=== PATIENT | male | born 2000 | race Caucasian/White ===

== ENCOUNTER 2023-10-25 17:42 | Emergency (ER) | payer BC, SELFPAY ==
[2023-10-25 17:42] VITALS: BP 137/90; PULSE 81; RESP 18; TEMP 37.2; O2SAT 97; BMI 20.9
--- NOTE | 2023-10-25 17:43 | ECG_ITS ---
APPROVED REPORT Exam: Resting ECG HR:75 bpm ECG Measurements Heart Rate 75 AXES IA 132 P 63 QRSd 93 QRS 90 QT 356 T 59 QTc 386 Conclusion SINUS RHYTHM NORMAL ECG UNCONFIRMED REPORT Electronically signed by : Osmany Barba, 10/25/2023 23:37:42
--- NOTE | 2023-10-25 18:01 | XR_ITS ---
PROCEDURE INFORMATION: Exam: XR Chest Exam date and time: 10/25/2023 6:02 PM Age: 23 years old Clinical indication: Dyspnea TECHNIQUE: Imaging protocol: Radiologic exam of the chest. Views: 1 view. COMPARISON: No relevant prior studies available. FINDINGS: Lungs: No consolidation. Pleural spaces: No pleural effusion. No pneumothorax. Heart/Mediastinum: No cardiomegaly. Bones/joints: Unremarkable. IMPRESSION: No acute pulmonary findings.
--- NOTE | 2023-10-25 18:03 | ED_ITS ---
Discharge Plan Disposition Patient Disposition: Home, Self-Care Activity Restrictions/Add. Instructions Additional Instructions/Restrictions: No evidence of acute cardiopulmonary emergency please call the primary care doctor as needed. Clinical Impressions Clinical Impression: Atypical chest pain, Anxiety Discharge ED Provider: Jose Barba [facility] General Chief Complaint: Chest Pain Stated Complaint: Chest pain Time Seen by Provider: 10/25/23 17:52 Mode of Arrival: Ambulatory Source of Information: Patient Limitations: No Limitations Description of Symptoms (Recalled from ER Triage Doc. by RN): chest pain on and off for the last 24 hours. currently a 05/17. History of Present Illness HPI narrative: Patient is a 23-year-old male presenting today with chest pain. Patient is currently a single father raising 4 children's also started a new job today at [employer]. He has had significant anxiety and stress leading up to today. States for the last 2 years has had some intermittent discomfort in the left side of his neck. This started a few days ago again and today has had some chest discomfort and left-sided neck pain. No exertional symptoms no diaphoresis no shortness of breath no fevers chills cough or any other symptoms etc. No family history of coronary disease at a young age no history of doing meth or cocaine. He is not an active smoker. Denies any other past medical problems. Related Data Allergies Allergy/AdvReac Type Severity Reaction Status Date / Time No Known Allergies Allergy Verified 10/25/23 18:20 [facility] Disclaimer: The information contained in this section may have been updated after the patient was seen, as this information can be updated by other users. Social History Smoking Status: Never smoker alcohol intake: never current occupational status: other Travel in the last 8 weeks: None ROS Obtained: Yes All systems reviewed & no additional complaints except as documented Physical Exam General General appearance: alert and in no apparent distress Respiratory Respiratory exam: Present normal lung sounds bilaterally; Absent respiratory distress Cardiovascular Cardiovascular exam: Present regular rate and normal rhythm Abdominal Exam Abdominal exam: Present soft; Absent distention or tenderness Neurological Exam Neurological exam: Present alert, oriented X3, CN II-XII intact, normal gait and other (Normal finger-nose [id number] bilaterally); Absent motor sensory deficit HEART Score HEART Score HEART Score assessment performed?: Yes History (anamnesis): Slightly suspicious ECG: Normal Age: <45 years Risk factors: No known risk factors Troponin: </= normal limit HEART Score: 0 Critical Care Critical Care Time Critical Care Time: No Medical Decision Making Gio Inquiry Pt receiving controlled substance: No Vital Signs Vital Signs: 10/25/23 17:42 Temperature 98.9 F Temperature Source Oral Pulse Rate [Right] 81 Respiratory Rate 18 Blood Pressure [Right Arm] 137/90 Blood Pressure Mean [Right Arm] 105 02 Sat by Pulse Oximetry 97 Oxygen Delivery Method Room Air Lab Data Lab results reviewed: Yes I reviewed the patient's lab results. Labs: Lab Results 10/25/23 17:50: WBC 8.0, RBC 5.42, Hgb 16.2, Hct 48.2, MCV 89.0, MCH 29.9, MCHC 33.6, RDW 13.2, Plt Count 287, MPV 7.7, Neut % (Auto) 56.0, Lymph % (Auto) 33.8, Haywood % (Auto) 6.3, Eos % (Auto) 2.1, Baso % (Auto) 1.9, Neut # (Auto) 4.5, Lymph # (Auto) 2.7, [place]wood # (Auto) 0.5, Eos # (Auto) 0.2, Baso # (Auto) 0.2, Sodium 140, Potassium 3.6, Chloride 104, Carbon Dioxide 27, Anion Gap 12.6, BUN 10, Creatinine 1.00, Estimated Creat Clear 106, Estimated GFR 91, Est GFR ( Amer) 110, Glucose 93, Calcium 9.4, Total Bilirubin 1.1, AST 32, ALT 22, Alkaline Phosphatase 66, Troponin I < 0.01, Total Protein 7.7, Albumin 4.8, Globulin 2.9, Albumin/Globulin Ratio 1.7 10/25/23 17:50 10/25/23 17:50 Response Orders (Tests/Meds): ORDERS Category Date Time Status CXR --portable [XR chest portable] Stat Exams 10/25/23 18:01 Taken CBC w/Auto Diff [Complete Blood Count Auto Diff] Stat Lab 10/25/23 17:50 Completed CMP [Comprehensive Metabolic Panel] Stat Lab 10/25/23 17:50 Completed Trop I [Troponin I] Stat Lab 10/25/23 17:50 Completed Troponin I Q3H Lab 10/25/23 21:15 Ordered Troponin I Q3H Lab 10/26/23 00:15 Ordered ECG Data Tracing #1: Attestation: I reviewed this ECG and interpreted as documented below: ECG Narrative: Ventricular rate of 75 normal sinus rhythm no acute ischemic changes noted no significant conduction abnormalities normal axis MDM Narrative Medical Decision Narrative: Very well-appearing 23-year-old male presented with a normal physical exam. After further questioning he states that he woke something up about his neck discomfort several years ago convinced himself that he had JVD and has since that time and concerned that he has significant heart problems. There is no evidence of any jugular venous distention on his exam. I reassured him about this. Additionally his EKG was unremarkable no evidence of ischemia. He has had ongoing symptoms for the last day or 2 we will get a single troponin this is not very unlikely to be acute coronary syndrome. He is PERC negative not consistent with pulmonary embolism. This is most consistent with significant anxiety and stress given his life circumstances at the moment and has been reassured about his underlying cardiopulmonary prognosis. After his initial workup is complete I think he will be stable for outpatient follow-up. Chest x-ray performed to person interpreted shows no acute cardiopulmonary emergency Reassessment 6:47 PM patient very stable and well-appearing on reassessment labs unremarkable no emergent medical condition identified he was discharged with advised to follow-up with primary care doctor return with any significant worsening symptoms.
[2023-10-25 18:13] LABS: Basophils # 0.2 K/mm3 (0-0.2); Basophils % 1.9 % (0.1-2.0); Chloride 104 mmol/L (98-107); Eosinophils # 0.2 K/mm3 (0.0-0.4); Eosinophils % 2.1 % (0.1-12.0); Hematocrit 48.2 % (42.0-52.0); Hemoglobin 16.2 g/dL (14.1-18.0); Lymphocytes # 2.7 K/mm3 (0.7-4.5); Lymphocytes % 33.8 % (10-50); Mean Corpuscular HGB Conc 33.6 g/dL (31.8-35.4); Mean Corpuscular Hemoglobin 29.9 pg (27.0-31.2); Mean Platelet Volume 7.7 fl (7.4-10.4); Monocytes # 0.5 K/mm3 (0.1-1.0); Monocytes % 6.3 % (1.7-9.3); Neutrophils # 4.5 K/mm3 (1.8-7.8); Platelet Count 287 K/mm3 (142-424); Potassium 3.6 mmoL/L (3.5-5.1); Red Blood Count 5.42 M/mm3 (4.60-6.20); Red Cell Distribution Width 13.2 % (11.5-17.5); Sodium 140 mmol/L (136-145)
[2023-10-25 18:16] LABS: Alanine Aminotransferase 22 U/L (12-78); Albumin Level 4.8 g/dl (3.5-5.0); Albumin/Globulin Ratio 1.7 (1.1-1.8); Alkaline Phosphatase 66 U/L (38-126); Anion Gap 12.6 mEq/L (5-15); Aspartate Amino Transferase 32 U/L (17-59); Bilirubin,Total 1.1 mg/dl (0.2-1.3); Blood Urea Nitrogen 10 mg/dl (9-20); Carbon Dioxide 27 mmol/L (22.0-30.0); Creatinine Clearance Estimated 106 mL/min (50-200); Estimated Glomerular Filt Rate 91 ml/min (>60); GFR (African American) 110 ML/MIN (>60); Globulin 2.9 g/dL (1.3-3.2); Total Protein,Serum 7.7 g/dl (6.3-8.2)
[2023-10-25 18:17] LABS: Calcium 9.4 mg/dl (8.4-10.2); Glucose 93 mg/dl (74-100)
[2023-10-25 18:37] LABS: Troponin I < 0.01 ng/ml (0.00-0.034)
[2023-10-25 18:48] VITALS: BP 110/66; PULSE 65; RESP 16; TEMP 36.6; O2SAT 100
== END 2023-10-25 18:53 | disposition home or self-care (01) ==
PROVIDERS: Emergency Provider Student in an Organized Health Care Education/Training Program
DX: R07.89 Other chest pain (principal); M54.2 Cervicalgia; F41.9 Anxiety disorder, unspecified
CPT/HCPCS: 71045; 80053; 84484; 85025; 93005; 99284